=== PATIENT | male | born 1975 | race Two or more races ===

== ENCOUNTER 2017-03-15 11:02 | Emergency (ER) | payer OTHER ==
[~2017-03-15] VITALS: Ht 172.7 cm; Wt 81.6 kg
[2017-03-15 11:40] LABS: Basophils # (auto) 0 uL; Basophils % (auto) 0.4 % (0.0-2.0); Eosinophils # (auto) 0.1 uL; Eosinophils % (auto) 1.1 % (0.0-7.0); Hematocrit 47.9 % (41.0-53.0); Hemoglobin 16.3 g/dL (13.5-17.5); Lymphocytes # (auto) 1.8 uL; Lymphocytes % (auto) 21.9 % (10.0-50.0); Mean Corpuscular Hemoglobin 31.1 pg (28.0-32.0); Mean Corpuscular Volume 91.4 fL (80.0-100.0); Monocytes # (auto) 0.5 uL; Monocytes % (auto) 5.7 % (0.0-12.0); Neutrophils # (auto) 5.8 uL; Neutrophils % (auto) 70.9 % (37.0-80.0); Nucleated Red Blood Cells % 0.1 %; Platelet Count (auto) 200 10^3/uL (140-450); Red Blood Cells 5.25 10^6/uL (4.5-5.90); Red Cell Distribution Width 14.1 % (11.8-14.3); White Blood Cell 8.2 10^3/uL (4.4-10.8)
[2017-03-15 12:22] LABS: Albumin 3.8 g/dL (3.4-5.0); BUN/Creatinine Ratio 17.2; Bilirubin, Total 0.8 mg/dL (0.2-1.0); Calcium 8.5 mg/dL (8.5-10.1); Potassium 3.8 mmol/L (3.5-5.1); Total Protein 7.4 g/dL (6.4-8.2)
[2017-03-15 16:30] VITALS: BP 124/74
[2017-03-15] MEDS ORDERED: PANTOPRAZOLE 40 MG TAB PO ONE (17:15)
== END 2017-03-15 17:39 | disposition home or self-care (01) ==
LOC: ER 11:02
DX: K29.50 Unspecified chronic gastritis without bleeding (principal); R79.89 Other specified abnormal findings of blood chemistry; Z82.49 Family history of ischemic heart disease and other diseases of the circulatory system
CPT/HCPCS: 36415; 74176; 80053; 81002; 85025

== ENCOUNTER 2017-06-16 10:31 | Emergency (ER) | payer OTHER ==
[~2017-06-16] VITALS: Ht 172.7 cm; Wt 83.9 kg
[2017-06-16] MEDS ORDERED: LORazepam 0.5 MG TAB PO ONE (11:30)
[2017-06-16 11:40] LABS: Basophils # (auto) 0.1 uL; Basophils % (auto) 0.7 % (0.0-2.0); Eosinophils # (auto) 0.1 uL; Eosinophils % (auto) 1.1 % (0.0-7.0); Hemoglobin 16.4 g/dL (13.5-17.5); Lymphocytes # (auto) 1.8 uL; Lymphocytes % (auto) 24.3 % (10.0-50.0); Mean Corpuscular Hemoglobin 30.6 pg (28.0-32.0); Mean Corpuscular Hgb Conc. 33.6 g/dL (32.0-36.0); Mean Corpuscular Volume 91.2 fL (80.0-100.0); Monocytes # (auto) 0.6 uL; Monocytes % (auto) 8.3 % (0.0-12.0); Neutrophils # (auto) 4.9 uL; Neutrophils % (auto) 65.6 % (37.0-80.0); Nucleated Red Blood Cells % 0.1 %; Platelet Count (auto) 211 10^3/uL (140-450); Red Blood Cells 5.37 10^6/uL (4.5-5.90); Red Cell Distribution Width 13.7 % (11.8-14.3); White Blood Cell 7.5 10^3/uL (4.4-10.8)
[2017-06-16 11:54] LABS: Albumin 3.9 g/dL (3.4-5.0); BUN/Creatinine Ratio 17.4; Bilirubin, Total 0.6 mg/dL (0.2-1.0); Calcium 8.7 mg/dL (8.5-10.1); Potassium 4.1 mmol/L (3.5-5.1); Total Protein 7.5 g/dL (6.4-8.2)
[2017-06-16 12:48] VITALS: BP 126/78
== END 2017-06-16 14:12 | disposition home or self-care (01) ==
LOC: ER 10:31 → EDBD 10:31 → ER 14:12
DX: R53.1 Weakness (principal); F41.9 Anxiety disorder, unspecified; H53.8 Other visual disturbances
CPT/HCPCS: 36415; 70450; 80053; 82962; 84484; 85025; 93005

== ENCOUNTER 2019-11-24 21:24 | Emergency (ER) | payer OTHER ==
[~2019-11-24] VITALS: Ht 172.7 cm; Wt 83.9 kg
[2019-11-24 22:18] VITALS: BP 117/78
== END 2019-11-24 23:20 | disposition home or self-care (01) ==
LOC: ER 21:27
DX: S93.402A Sprain of unspecified ligament of left ankle, initial encounter (principal); W20.8XXA Other cause of strike by thrown, projected or falling object, initial encounter; Y93.89 Activity, other specified; Y92.69 Other specified industrial and construction area as the place of occurrence of the external cause; Y99.8 Other external cause status
CPT/HCPCS: 73562; 73610